=== PATIENT | male | born 1960 | race American Indian/Alaskan Native ===

== ENCOUNTER 2016-10-30 10:46 | Emergency (ER) | payer MEDICARE ==
--- NOTE | 2016-10-30 11:35 | Emergency Department Report ---
Chief Complaint: Psych Stated Complaint: MEDICAL CLEARANCE / Time Seen by Provider: 10/30/16 11:33 - HPI History of Present Illness: PT states he is here for medical clearance. PT states he has a hx of crack use. - ROS Review of Systems: - si/ hi - Exam Vital Signs: Vital Signs 10/30/16 11:03 Temperature 98.4 F Pulse Rate 57 L Respiratory 18 Rate Blood Pressure 144/99 O2 Sat by Pulse 99 Oximetry Physical Exam: PT has a flat affect PT denies HI/ SI MSE screening note: Focused history and physical exam performed. Due to findings the following was ordered: labs ED Disposition for MSE Condition: Stable
[2016-10-30 12:02] LABS: Basophils % (Auto) 1.2 % (0.0-1.8); Eosinophils % (Auto) 0.5 % (0.0-4.3); Hemoglobin 14.9 gm/dl (11.8-15.2); Mean Corpuscular HGB Conc 34 % (32-34); Mean Corpuscular Hemoglobin 32 pg (28-32); Mean Corpuscular Volume 94 fl (84-94); Platelet Count 244 K/mm3 (140-440); Red Blood Count 4.66 M/mm3 (3.65-5.03); Red Cell Distribution Width 14.9 % (13.2-15.2)
[2016-10-30 12:28] LABS: Alanine Aminotransferase 32 units/L (7-56); Albumin 4.2 g/dL (3.9-5); Albumin/Globulin Ratio 1.3 %; Alkaline Phosphatase 73 units/L (35-129); Anion Gap 18 mmol/L; BUN/Creatinine Ratio 14.54; Blood Urea Nitrogen 16 mg/dL (9-20); Calcium 9.3 mg/dL (8.4-10.2); Carbon Dioxide 22 mmol/L (22-30); Glucose 88 mg/dL (75-100); Potassium 4.2 mmol/L (3.6-5.0); Sodium 138 mmol/L (137-145); Total Protein 7.5 g/dL (6.3-8.2)
[2016-10-30 12:30] LABS: Urine Drugs of Abuse Note Disclamer
[2016-10-30 12:37] LABS: Bilirubin,Urine NEG (Negative); Blood,Urine SM (Negative); Ketones,Urine NEG (Negative); Leukocyte Esterase,Urine NEG (Negative); Mucus,Urine FEW /HPF; Nitrite,Urine NEG (Negative); Protein,Urine <15 mg/dL mg/dL (Negative); Urobilinogen,Urine < 2.0 mg/dL (<2.0)
--- NOTE | 2016-10-30 14:26 | Emergency Department Report ---
HPI - General Chief Complaint: Psych Time Seen by Provider: 10/30/16 11:33 - HPI HPI: Room 7 The patient is a 56-year-old male presenting with a chief complaint of polysubstance abuse. The patient states he went to [facility] for help with detoxing from alcohol and crack cocaine. The patient states he was sent to the ED for medical clearance. Patient denies suicidal or homicidal ideation. Patient denies auditory or visual hallucinations. Location: Mental state Duration: [see above] Quality: [see above] Severity: Moderate Modifying factors: [see above] Context: [see above] Mode of transportation: Unknown ED Past Medical Hx - Past Medical History Previous Medical History?: Yes Hx Hypertension: Yes Hx Psychiatric Treatment: Yes (ETOH abuse, Drug use) - Surgical History Past Surgical History?: No - Family History Family history: no significant - Social History Smoking Status: Current Every Day Smoker (1/2 pack per day) Substance Use Type: Alcohol (72 ounces of beer daily), Cocaine - Medications Home Medications: Home Medications Medication Instructions Recorded Confirmed Last Taken Type No Known Home Medications [No 10/30/16 10/30/16 Unknown History Reported Home Medications] ED Review of Systems ROS: Stated complaint: MEDICAL CLEARANCE / Other details as noted in HPI Comment: All other systems reviewed and negative Constitutional: denies: chills, fever Eyes: denies: eye pain, eye discharge, vision change ENT: denies: ear pain, throat pain Respiratory: denies: cough, shortness of breath, wheezing Cardiovascular: denies: chest pain, palpitations Endocrine: no symptoms reported Gastrointestinal: denies: abdominal pain, nausea, diarrhea Genitourinary: denies: urgency, dysuria Musculoskeletal: denies: back pain, joint swelling, arthralgia Skin: denies: rash, lesions Neurological: denies: headache, weakness, paresthesias Psychiatric: denies: anxiety, depression Hematological/Lymphatic: denies: easy bleeding, easy bruising Physical Exam - Physical Exam Vital Signs: Vital Signs 10/30/16 11:03 Temperature 98.4 F Pulse Rate 57 L Respiratory 18 Rate Blood Pressure 144/99 O2 Sat by Pulse 99 Oximetry Physical Exam: GENERAL: The patient is well-developed well-nourished male lying on stretcher not appearing to be in acute distress. [] HEENT: Normocephalic. Atraumatic. Extraocular motions are intact. Patient has moist mucous membranes. NECK: Supple. Trachea midline CHEST/LUNGS: Clear to auscultation. There is no respiratory distress noted. HEART/CARDIOVASCULAR: Regular. There is no tachycardia. There is no gallop rub or murmur. ABDOMEN: Abdomen is soft, nontender. Patient has normal bowel sounds. There is no abdominal distention. SKIN: There is no rash. There is no edema. There is no diaphoresis. NEURO: The patient is awake, alert, and oriented. The patient is cooperative. The patient has normal speech MUSCULOSKELETAL: There is no evidence of acute injury. ED Course Vital Signs 10/30/16 11:03 Temperature 98.4 F Pulse Rate 57 L Respiratory 18 Rate Blood Pressure 144/99 O2 Sat by Pulse 99 Oximetry ED Medical Decision Making - Lab Data Result diagrams: 10/30/16 11:51 10/30/16 11:51 Laboratory Tests 10/30/16 10/30/16 10/30/16 11:51 11:51 11:51 WBC 6.0 RBC 4.66 Hgb 14.9 Hct 44.0 MCV 94 MCH 32 MCHC 34 RDW 14.9 Plt Count 244 Lymph % (Auto) 40.2 H [place] % (Auto) 6.8 Eos % (Auto) 0.5 Baso % (Auto) 1.2 Lymph # 2.4 [place] # 0.4 Eos # 0.0 Baso # 0.1 Seg Neutrophils % 51.3 Seg Neutrophils # 3.1 Sodium 138 Potassium 4.2 Chloride 102.0 Carbon Dioxide 22 Anion Gap 18 BUN 16 Creatinine 1.1 Estimated GFR > 60 BUN/Creatinine Ratio 14.54 Glucose 88 Calcium 9.3 Total Bilirubin 0.40 AST 28 ALT 32 Alkaline Phosphatase 73 Total Protein 7.5 Albumin 4.2 Albumin/Globulin Ratio 1.3 Urine Color Urine Turbidity Urine pH Ur Specific [place] Urine Protein Urine Glucose (UA) Urine Ketones Urine Blood Urine Nitrite Urine Bilirubin Urine Urobilinogen Ur Leukocyte Esterase Urine WBC (Auto) Urine RBC (Auto) U Epithel Cells (Auto) Urine Mucus Salicylates < 0.3 L Urine Opiates Screen Urine Methadone Screen Acetaminophen Ur Barbiturates Screen Ur Phencyclidine Scrn Ur Amphetamines Screen U Benzodiazepines Scrn Urine Cocaine Screen U Marijuana (THC) Screen Drugs of Abuse Note Plasma/Serum Alcohol 10/30/16 10/30/1617 11:51 11:51 12:28 WBC RBC Hgb Hct MCV MCH MCHC RDW Plt Count Lymph % (Auto) [place] % (Auto) Eos % (Auto) Baso % (Auto) Lymph # [place] # Eos # Baso # Seg Neutrophils % Seg Neutrophils # Sodium Potassium Chloride Carbon Dioxide Anion Gap BUN Creatinine Estimated GFR BUN/Creatinine Ratio Glucose Calcium Total Bilirubin AST ALT Alkaline Phosphatase Total Protein Albumin Albumin/Globulin Ratio Urine Color Yellow Urine Turbidity Clear Urine pH 5.0 Ur Specific [place] 1.023 Urine Protein <15 mg/dl Urine Glucose (UA) Neg Urine Ketones Neg Urine Blood Sm Urine Nitrite Neg Urine Bilirubin Neg Urine Urobilinogen < 2.0 Ur Leukocyte Esterase Neg Urine WBC (Auto) 2.0 Urine RBC (Auto) 1.0 U Epithel Cells (Auto) < 1.0 Urine Mucus Few Salicylates Urine Opiates Screen Urine Methadone Screen Acetaminophen < 15.0 Ur Barbiturates Screen Ur Phencyclidine Scrn Ur Amphetamines Screen U Benzodiazepines Scrn Urine Cocaine Screen U Marijuana (THC) Screen Drugs of Abuse Note Plasma/Serum Alcohol < 0.01 10/30/16 12:28 WBC RBC Hgb Hct MCV MCH MCHC RDW Plt Count Lymph % (Auto) [place] % (Auto) Eos % (Auto) Baso % (Auto) Lymph # [place] # Eos # Baso # Seg Neutrophils % Seg Neutrophils # Sodium Potassium Chloride Carbon Dioxide Anion Gap BUN Creatinine Estimated GFR BUN/Creatinine Ratio Glucose Calcium Total Bilirubin AST ALT Alkaline Phosphatase Total Protein Albumin Albumin/Globulin Ratio Urine Color Urine Turbidity Urine pH Ur Specific [place] Urine Protein Urine Glucose (UA) Urine Ketones Urine Blood Urine Nitrite Urine Bilirubin Urine Urobilinogen Ur Leukocyte Esterase Urine WBC (Auto) Urine RBC (Auto) U Epithel Cells (Auto) Urine Mucus Salicylates Urine Opiates Screen Presumptive negative Urine Methadone Screen Presumptive negative Acetaminophen Ur Barbiturates Screen Presumptive negative Ur Phencyclidine Scrn Presumptive negative Ur Amphetamines Screen Presumptive negative U Benzodiazepines Scrn Presumptive negative Urine Cocaine Screen Presumptive positive U Marijuana (THC) Screen Presumptive negative Drugs of Abuse Note Disclamer Plasma/Serum Alcohol - Differential Diagnosis polysubstance abuse Critical care attestation.: If time is entered above; I have spent that time in minutes in the direct care of this critically ill patient, excluding procedure time. ED Disposition Clinical Impression: Cocaine abuse, Alcohol abuse Disposition: DC/TX-65 PSY HOSP/PSY UNIT Is pt being admited?: No Does the pt Need Aspirin: No Condition: Stable Referrals: PRIMARY CARE, [Primary Care Provider] - 3-5 Days Time of Disposition: 14:27 (dispo per )
[2016-10-30 18:27] VITALS: BP 135/80
== END 2016-10-30 18:26 ==
LOC: ED 10:46
DX: F14.10 Cocaine abuse, uncomplicated (principal); F10.10 Alcohol abuse, uncomplicated; I10 Essential (primary) hypertension; F17.210 Nicotine dependence, cigarettes, uncomplicated
CPT/HCPCS: 36415; 80053; 80307; 81001; 85025; 99284; G0480; 80320

== ENCOUNTER 2016-10-31 12:28 | Emergency (ER) | payer MEDICARE ==
--- NOTE | 2016-10-31 14:27 | XRay Report ---
AP CHEST: HISTORY: Hypertension AP view of the chest demonstrates a normal mediastinal and cardiac contour with clear lungs and normal bony and soft tissue structures. IMPRESSION: Unremarkable AP chest.
[2016-10-31 14:47] LABS: Creatine Kinase 166 units/L (55-170)
--- NOTE | 2016-10-31 20:46 | Emergency Department Report ---
ED General Adult HPI - General Chief complaint: Medical Clearance Stated complaint: BP LOW Time Seen by Provider: 10/31/16 20:45 Source: patient Mode of arrival: Ambulatory Limitations: No Limitations - History of Present Illness Initial comments: She is a 56-year-old male past medical history of hypertension who presents with medical clearance. They state that he is going to refer one for drug detox. And his heart rate was 56 so he was sent here to be evaluated. Patient denies having any symptoms of any chest pain, palpitations or any nausea or vomiting. Patient states that he feels fine. - Related Data Home Medications Medication Instructions Recorded Confirmed Last Taken No Known Home Medications [No 10/30/16 10/30/16 Unknown Reported Home Medications] Allergies Allergy/AdvReac Type Severity Reaction Status Date / Time No Known Allergies Allergy Unverified 10/30/16 11:03 ED Review of Systems ROS: Stated complaint: BP LOW Other details as noted in HPI Comment: All other systems reviewed and negative Constitutional: denies: chills, fever Eyes: denies: eye pain, eye discharge, vision change ENT: denies: ear pain, throat pain Respiratory: denies: cough, shortness of breath, wheezing Cardiovascular: denies: chest pain, palpitations Endocrine: no symptoms reported Gastrointestinal: denies: abdominal pain, nausea, diarrhea Genitourinary: denies: urgency, dysuria Musculoskeletal: denies: back pain, joint swelling, arthralgia Skin: denies: rash, lesions Neurological: denies: headache, weakness, paresthesias Psychiatric: denies: anxiety, depression Hematological/Lymphatic: denies: easy bleeding, easy bruising ED Past Medical Hx - Past Medical History Previous Medical History?: Yes Hx Hypertension: Yes Hx Psychiatric Treatment: Yes (ETOH abuse, Drug use) - Surgical History Past Surgical History?: No - Social History Smoking Status: Current Every Day Smoker Substance Use Type: Alcohol, Cocaine - Medications Home Medications: Home Medications Medication Instructions Recorded Confirmed Last Taken Type No Known Home Medications [No 10/30/16 10/30/16 Unknown History Reported Home Medications] ED Physical Exam - General Limitations: No Limitations - Other Other exam information: General: [No apparent distress,][alert and oriented x 3,][pleasant,][cooperative ] Eyes:[Fundus exam within normal limits,][pupils equal round and reactive to light,][extraocular movements intact] ENT: [Nares patent, mucous membranes moist, pink,][tympanic membranes pearly pink, with visible landmarks, no erythema or air-fluid level,] [oropharynx clear without exudates] Dentition: [Normal] Neck: [Supple without masses,][trachea midline,][no thyromegaly] Cardiovascular:[Normal sinus rhythm without murmurs,][carotid upstroke brisk and normal bilaterally without bruits,][no lower extremity edema][default value] Lungs: [Clear to auscultation bilaterally,][unlabored on room air] Abdomen:[Soft, nontender, nondistended,][NABS] Musculoskeletal:[Gait within normal limits,][no overt joint effusion or warmth] Skin:[No overt acute lesions] Psych:[No depression or anxiety present,][no tactile agitation] ED Course Vital Signs 10/31/16 10/31/16 10/31/16 13:48 20:45 21:30 Temperature 98.4 F 98.2 F Pulse Rate 45 L 67 Respiratory 16 16 16 Rate Blood Pressure 170/113 Blood Pressure 156/84 [Left] O2 Sat by Pulse 100 99 99 Oximetry - Reevaluation(s) Reevaluation #1: 10/31/16 21:30 Patient is not feeling lightheaded after eating. I'll send patient home back to [place] ED Medical Decision Making - Lab Data Laboratory Results - last 24 hr 10/31/16 14:13 Total Creatine Kinase 166 Troponin T < 0.010 - EKG Data 10/31/16 21:32 EKG shows marked sinus bradycardia with J-point elevation due to repolarization and signs of LVH. - Medical Decision Making Medical diagnosis: Bradycardia secondary to cocaine cessation Differential medical diagnosis: palpitation, sleeping Patient's laboratory findings are within the normal limits patient's bradycardia is not symptomatic in some while within the limits of normal. His heart rate currently now is 65 and I will send patient to referral and for medical detox. Critical care attestation.: If time is entered above; I have spent that time in minutes in the direct care of this critically ill patient, excluding procedure time. ED Disposition Clinical Impression: Medical clearance for psychiatric admission, Cocaine abuse Disposition: DC-01 TO HOME OR SELFCARE Is pt being admited?: No Does the pt Need Aspirin: No Condition: Stable Instructions: Bradycardia (ED), Polysubstance Abuse (ED) Referrals: PRIMARY CARE, [Primary Care Provider] - 3-5 Days
[2016-10-31 22:49] VITALS: BP 156/84
== END 2016-10-31 21:40 | disposition home or self-care (01) ==
LOC: ED 12:28
DX: F14.10 Cocaine abuse, uncomplicated (principal); I10 Essential (primary) hypertension
CPT/HCPCS: 36415; 71010; 82550; 84484; 93005; 93010

== ENCOUNTER 2017-05-08 08:17 | Emergency (ER) | payer MEDICARE ==
[2017-05-08 10:09] LABS: Hematocrit 45.5 % (35.5-45.6); Mean Corpuscular HGB Conc 33 % (32-34); Mean Corpuscular Hemoglobin 30 pg (28-32); Mean Corpuscular Volume 92 fl (84-94); Platelet Count 231 K/mm3 (140-440); Red Blood Count 4.93 M/mm3 (3.65-5.03); Red Cell Distribution Width 15.7 % (13.2-15.2)
[2017-05-08 10:22] LABS: BUN/Creatinine Ratio 6; Blood Urea Nitrogen 9 mg/dL (9-20); Calcium 8.6 mg/dL (8.4-10.2); Hemolysis Index 13
[2017-05-08 11:02] LABS: Band Neutrophils # (Manual) 0.6 K/mm3; Basophils % (Manual) 0 % (0.0-1.8); Eosinophils % (Manual) 0 % (0.0-4.3); RBC Morphology Normal; Total Cells Counted 100
--- NOTE | 2017-05-08 12:22 | XRay Report ---
CHEST 2 VIEWS INDICATION: Cough, dizziness. COMPARISON: 10/31/2016. FINDINGS: PA and lateral chest radiographs demonstrate normal cardiomediastinal silhouette. Clear lungs. Intact bones. CONCLUSION: No acute disease in the chest. Thank you for the opportunity to participate in this patient's care.
--- NOTE | 2017-05-08 16:22 | Emergency Department Report ---
Minor Respiratory - HPI Chief Complaint: Dizziness Stated Complaint: HYPERTENSION, DIZZINESS Time Seen by Provider: 05/08/17 16:00 Duration: 2 Days Severity: mild Minor Respiratory: Yes Rhinorrhea, Yes Able to Tolerate Fluids, Yes Cough ( patient has had a pretty productive cough for the past several days with a mild headache.), No Sore Throat, No Ear Pain, No Sick Contacts, No Hemoptysis, No Chest Pain, No Shortness of Breath, No Fever Other History: Patient is July [facility] by [facility] where he is a patient for drug abuse. Patient was sent in because he has had cough, congestion as well as diarrhea ED Review of Systems ROS: Stated complaint: HYPERTENSION, DIZZINESS Other details as noted in HPI Constitutional: denies: chills, fever Eyes: denies: eye pain, eye discharge, vision change ENT: denies: ear pain, throat pain Respiratory: denies: cough, shortness of breath, wheezing Cardiovascular: denies: chest pain, palpitations Endocrine: no symptoms reported Gastrointestinal: denies: abdominal pain, nausea, diarrhea Genitourinary: denies: urgency, dysuria Musculoskeletal: denies: back pain, joint swelling, arthralgia Skin: denies: rash, lesions Neurological: denies: headache, weakness, paresthesias Psychiatric: denies: anxiety, depression Hematological/Lymphatic: denies: easy bleeding, easy bruising ED Past Medical Hx - Past Medical History Previous Medical History?: Yes Hx Hypertension: Yes Hx Psychiatric Treatment: Yes (ETOH abuse, Drug use) - Surgical History Past Surgical History?: No - Social History Smoking Status: Current Every Day Smoker Substance Use Type: Alcohol, Prescribed - Medications Home Medications: Home Medications Medication Instructions Recorded Confirmed Last Taken Type ALBUTEROL Inhaler [ProAir HFA 2 puff IH QID PRN #1 inhalation 05/08/17 Unknown Rx Inhaler] Benzonatate [Tessalon Perle] 100 mg PO TID #12 capsule 05/08/17 Unknown Rx predniSONE [Deltasone] 20 mg PO QDAY #5 tab 05/08/17 Unknown Rx Minor Respiratory Exam - Exam General: Vital signs noted. No distress. Alert and acting appropriately. HEENT: Yes Moist Mucous Membranes, No Pharyngeal Erythema, No Pharyngeal Exudates, No Rhinorrhea, No Conjuctival Injection, No Frontal Tenderness, No Maxillary Tenderness Ear: Neither TM Bulge, Neither TM Erythema, Neither EAC Pain, Neither EAC Discharge Neck: Yes Supple, No Adenopathy Lungs: Yes Good Air Exchange, No Wheezes, No Ronchi, No Stridor, No Cough, No Labored Respirations, No Retractions, No Use of Accessory Muscles, No Other Abnormal Lung Sounds Heart: Yes Regular, No Murmur Abdomen: Yes Normal Bowel Sounds, No Tenderness, No Peritoneal Signs Skin: No Rash, No Edema Neurologic: Alert and oriented, no deficits. Musculoskeletal: Unremarkable. ED Course Vital Signs 05/08/17 09:08 Temperature 99.8 F H Pulse Rate 81 Respiratory 16 Rate Blood Pressure 151/90 O2 Sat by Pulse 95 Oximetry ED Medical Decision Making - Lab Data Result diagrams: 05/08/17 Unknown 05/08/17 09:12 - Radiology Data Radiology results: report reviewed No acute process Critical care attestation.: If time is entered above; I have spent that time in minutes in the direct care of this critically ill patient, excluding procedure time. ED Disposition Clinical Impression: Acute bronchitis Qualifiers: Bronchitis organism: unspecified organism Qualified Code(s): J20.9 - Acute bronchitis, unspecified Disposition: DC-01 TO HOME OR SELFCARE Is pt being admited?: No Does the pt Need Aspirin: No Condition: Stable Instructions: Acute Bronchitis (ED) Prescriptions: ALBUTEROL Inhaler [ProAir HFA Inhaler] 2 puff IH QID PRN #1 inhalation PRN Reason: Shortness Of Breath Benzonatate [Tessalon Perle] 100 mg PO TID #12 capsule predniSONE [Deltasone] 20 mg PO QDAY #5 tab Referrals: PRIMARY CARE, [Primary Care Provider] - 3-5 Days
[2017-05-08 17:05] VITALS: BP 148/86
== END 2017-05-08 17:05 | disposition home or self-care (01) ==
LOC: ED 08:17
DX: J20.9 Acute bronchitis, unspecified (principal); I10 Essential (primary) hypertension; F17.200 Nicotine dependence, unspecified, uncomplicated
CPT/HCPCS: 36415; 71046; 80048; 84484; 85007; 85025; 93005; 93010

== ENCOUNTER 2017-05-28 20:06 | Emergency (ER) | payer MEDICARE ==
[2017-05-28 20:14] VITALS: BP 116/80
--- NOTE | 2017-05-28 22:35 | Emergency Department Report ---
[place] [facility] Chief Complaint: Eye Problems Stated Complaint: EYE PAIN Time Seen by Provider: 05/28/17 22:30 Duration: Today Side: Bilateral Severity: moderate Symptoms: Yes Eye Itching, Yes Eye Pain (burning bilateral), No Eye Redness, No Mucous Drainage, No Purulent Drainage, No Blurred Vision, No Preceding URI, No H /O Allergic Rhinitis, No Contact Lens Use, No Trauma, No Fever Other History: This is a 56 y.o. male that presents with bilateral eye itching and burning that started today around 1800. Patient reports taking a nap at 1700 and woke up to swelling and itching to both eyes. States he is now starting to feel burning sensation. He ate around 1700 and felt fine prior to taking a nap. Denies visual changes, discharge, eating something new, cough, fever, congestion, rhinorrhea, difficulty breathing or swallowing. ED Review of Systems ROS: Stated complaint: EYE PAIN Other details as noted in HPI Constitutional: denies: chills, fever Eyes: eye pain (burning bilaterally), other (puffiness around both eyes). denies: eye discharge, vision change ENT: denies: ear pain, throat pain Respiratory: denies: cough, shortness of breath, SOB with exertion, wheezing Cardiovascular: denies: chest pain, palpitations Gastrointestinal: denies: abdominal pain, nausea, vomiting, diarrhea Neurological: denies: headache, weakness, numbness, paresthesias Psychiatric: denies: anxiety, depression ED Past Medical Hx - Past Medical History Hx Hypertension: Yes Hx Psychiatric Treatment: Yes (ETOH abuse, Drug use) - Social History Smoking Status: Current Every Day Smoker Substance Use Type: Alcohol, Prescribed - Medications Home Medications: Home Medications Medication Instructions Recorded Confirmed Last Taken Type ALBUTEROL Inhaler [ProAir HFA 2 puff IH QID PRN #1 inhalation 05/08/17 Unknown Rx Inhaler] Benzonatate [Tessalon Perle] 100 mg PO TID #12 capsule 05/08/17 Unknown Rx predniSONE [Deltasone] 20 mg PO QDAY #5 tab 05/08/17 Unknown Rx Cetirizine HCl [Zyrtec] 10 mg PO DAILY #30 tablet 05/28/17 Unknown Rx Olopatadine HCl [Pataday 0.2%] 2.5 ml OP BID #1 bottle 05/28/17 Unknown Rx [place] [facility] Exam - Exam General: Vital signs noted. No distress. Alert and acting appropriately. Eye Exam: Both EOMI, Neither Injection, Neither Chemosis (swelling of bilateral lower eyelids), Neither Abnormal Pupil, Neither Eye Foreign Body, Neither Lid Foreign Body, Neither Mucous Discharge, Neither Purulent Discharge, Neither Fluorescein Uptake, Neither Fluorescein Uptake (slit lamp), Neither Cell/Flare ( slit lamp), Neither Corneal Edema, Neither Photophobia HEENT: Yes Nasal Congestion, No Pharyngeal Erythema Lungs: Yes Clear Lung Sounds, Yes Good Air Exchange, No Wheezes, No Stridor, No Cough, No Nasal Flaring, No Retractions, No Use of Accessory Muscles ED Course Vital Signs 05/28/17 20:12 Temperature 98.5 F Pulse Rate 60 Respiratory 18 Rate Blood Pressure 116/80 O2 Sat by Pulse 98 Oximetry ED Medical Decision Making - Medical Decision Making This is a 56 y.o. A.A. male that presents with bilateral swelling of lower eyelid and burning to eyes. Patient is stable and was examined by me. Vitals normal. Physical assessment susceptible of allergic conjunctivitis bilateral. Start pataday 1 gtt bid 7 days and ceterizine 10 mg po daily, #30. Discussed plan with patient and he agreed with plan. Discharged home in stable condition. Follow up with PCP in 24-72 hours. Critical care attestation.: If time is entered above; I have spent that time in minutes in the direct care of this critically ill patient, excluding procedure time. ED Disposition Clinical Impression: Allergic conjunctivitis and rhinitis Qualifiers: Laterality: bilateral Qualified Code(s): H10.13 - Acute atopic conjunctivitis, bilateral Disposition: - TO HOME OR SELFCARE Is pt being admited?: No Does the pt Need Aspirin: No Condition: Stable Instructions: Conjunctivitis (ED), Allergic Rhinitis (ED) Additional Instructions: Use cool compress to each eye to decrease swelling. Avoid rubbing or touching eyes, because rubbing eyes can cause worsening symptoms. Take medication as prescribed. Return to ER if swelling don't improve or difficulty breathing after 2 days of medication. Follow up with primary care provider in 24-72 hours. Prescriptions: Cetirizine HCl [Zyrtec] 10 mg PO DAILY #30 tablet Olopatadine HCl [Pataday 0.2%] 2.5 ml OP BID #1 bottle Referrals: [facility] [Outside] - 3-5 Days [facility] [Outside] - 3-5 Days [facility] [Outside] - 3-5 Days Time of Disposition: 22:48 Print Language: TURKISH
== END 2017-05-28 22:57 | disposition home or self-care (01) ==
LOC: ED 20:06
DX: H10.13 Acute atopic conjunctivitis, bilateral (principal); J30.9 Allergic rhinitis, unspecified; I10 Essential (primary) hypertension; F17.200 Nicotine dependence, unspecified, uncomplicated
CPT/HCPCS: 99282

== ENCOUNTER 2019-12-27 09:12 | Emergency (ER) | payer MEDICARE ==
[2019-12-27 09:18] VITALS: BP 156/89
[2019-12-27 10:12] LABS: Bilirubin,Urine NEG (Negative); Blood,Urine SM (Negative); Color,Urine Yellow (Yellow); Mucus,Urine FEW /HPF; Protein,Urine <15 mg/dL mg/dL (Negative); Urobilinogen,Urine < 2.0 mg/dL (<2.0)
[2019-12-27 10:35] LABS: Basophils % (Auto) 0.5 % (0.0-1.8); Eosinophils # (Auto) 0.1 K/mm3 (0.0-0.4); Eosinophils % (Auto) 0.7 % (0.0-4.3); Hematocrit 44.1 % (35.5-45.6); Lymphocytes # (Auto) 1.8 K/mm3 (1.2-5.4); Lymphocytes % (Auto) 21.4 % (13.4-35.0); Mean Corpuscular HGB Conc 34 % (32-34); Mean Corpuscular Volume 94 fl (84-94); Monocytes # (Auto) 0.9 K/mm3 (0.0-0.8); Monocytes % (Auto) 11.2 % (0.0-7.3); Platelet Count 270 K/mm3 (140-440); Red Blood Count 4.71 M/mm3 (3.65-5.03); Red Cell Distribution Width 15.1 % (13.2-15.2)
[2019-12-27 10:46] LABS: Alanine Aminotransferase 21 units/L (7-56); Albumin 4.3 g/dL (3.9-5); BUN/Creatinine Ratio 17; Blood Urea Nitrogen 20 mg/dL (9-20); Calcium 9.6 mg/dL (8.4-10.2); Hemolysis Index 14
[2019-12-27] MEDS ORDERED: ONDANSETRON 4 MG/2 ML INJ IV ONE (13:39)
[2019-12-27] MEDS ORDERED: SODIUM CHLORIDE 0.9% 1000 ML 1,000 ML IV ONE (13:39)
[2019-12-27] MEDS ORDERED: MORPHINE 4 MG/1 ML INJ IV ONE (13:39)
--- NOTE | 2019-12-27 13:44 | Emergency Department Report ---
ED Abdominal Pain HPI - General Chief Complaint: Abdominal Pain Stated Complaint: abd pain Time Seen by Provider: 12/27/19 13:10 Source: patient Mode of arrival: Ambulatory Limitations: No Limitations - History of Present Illness Initial Comments: This is a 59-year-old male nontoxic, well nourished in appearance, no acute signs of distress presents to the ED with c/o of nausea and vomiting and abdominal pain 1 day. Patient describes vomiting as food content and yellow gastric acid. Patient describes abdominal pain as cramping and aching with le karen of 8/10 diffuse. Patient denies chest pain, short of breath, fever, hemoptysis, blood in stool, chills, headache, stiff neck, numbness or tingling. Patient denies any diarrhea but agrees to constipation. Denies any blood in stool. Patient denies any recent travels. Patient denies any allergies. MD Complaint: abdominal pain -: days(s) Location: diffuse Radiation: none Migration to: no migration Severity: mild Severity scale (0 -10): 8 Quality: aching Consistency: constant Improves With: nothing Worsens With: nothing Associated Symptoms: nausea, vomiting. denies: diarrhea, fever, chills, constipation, dysuria, hematemesis, hematochezia, melena, hematuria, anorexia, syncope - Related Data Previous Rx's Medication Instructions Recorded Last Taken Type Albuterol Mdi (or & Nicu Only) 2 puff IH QID PRN #1 inhalation 05/08/17 Unknown Rx [ProAir HFA Inhaler] Benzonatate [Tessalon Perle] 100 mg PO TID #12 capsule 05/08/17 Unknown Rx predniSONE [Deltasone] 20 mg PO QDAY #5 tab 05/08/17 Unknown Rx Cetirizine HCl [Zyrtec 10mg tab] 10 mg PO DAILY #30 tablet 05/28/17 Unknown Rx Olopatadine HCl [Pataday 0.2%] 2.5 ml OP BID #1 bottle 05/28/17 Unknown Rx Ciprofloxacin HCl [Ciprofloxacin 500 mg PO Q12HR #14 tab 12/27/19 Unknown Rx TAB] Ondansetron [Zofran Odt] 4 mg PO Q8HR PRN #12 tab.rapdis 12/27/19 Unknown Rx metroNIDAZOLE [Flagyl] 500 mg PO Q12HR #14 tab 12/27/19 Unknown Rx Allergies Allergy/AdvReac Type Severity Reaction Status Date / Time No Known Allergies Allergy Verified 12/27/19 09:14 ED Review of Systems ROS: Stated complaint: abd pain Other details as noted in HPI Comment: All other systems reviewed and negative Constitutional: denies: chills, fever Eyes: denies: eye pain, eye discharge, vision change ENT: denies: ear pain, throat pain Respiratory: denies: cough, shortness of breath, wheezing Cardiovascular: denies: chest pain, palpitations Endocrine: no symptoms reported Gastrointestinal: abdominal pain, nausea, vomiting, constipation. denies: diarrhea, hematemesis, melena, hematochezia Genitourinary: denies: urgency, dysuria Musculoskeletal: denies: back pain, joint swelling, arthralgia Skin: denies: rash, lesions Neurological: denies: headache, weakness, paresthesias Psychiatric: denies: anxiety, depression Hematological/Lymphatic: denies: easy bleeding, easy bruising ED Past Medical Hx - Past Medical History Hx Hypertension: Yes Hx Psychiatric Treatment: (ETOH abuse, DruG ABUSE) - Social History Smoking Status: Current Every Day Smoker Substance Use Type: None - Medications Home Medications: Home Medications Medication Instructions Recorded Confirmed Last Taken Type Albuterol Mdi (or & Nicu Only) 2 puff IH QID PRN #1 inhalation 05/08/17 Unknown Rx [ProAir HFA Inhaler] Benzonatate [Tessalon Perle] 100 mg PO TID #12 capsule 05/08/17 Unknown Rx predniSONE [Deltasone] 20 mg PO QDAY #5 tab 05/08/17 Unknown Rx Cetirizine HCl [Zyrtec 10mg tab] 10 mg PO DAILY #30 tablet 05/28/17 Unknown Rx Olopatadine HCl [Pataday 0.2%] 2.5 ml OP BID #1 bottle 05/28/17 Unknown Rx Ciprofloxacin HCl [Ciprofloxacin 500 mg PO Q12HR #14 tab 12/27/19 Unknown Rx TAB] Ondansetron [Zofran Odt] 4 mg PO Q8HR PRN #12 tab.rapdis 12/27/19 Unknown Rx metroNIDAZOLE [Flagyl] 500 mg PO Q12HR #14 tab 12/27/19 Unknown Rx ED Physical Exam - General Limitations: No Limitations General appearance: alert, in no apparent distress - Head Head exam: Present: atraumatic, normocephalic - Eye Eye exam: Present: normal appearance - Neck Neck exam: Present: normal inspection, full ROM. Absent: tenderness, meningismus, lymphadenopathy - Respiratory Respiratory exam: Present: normal lung sounds bilaterally. Absent: respiratory distress, wheezes, rales, rhonchi, stridor, chest wall tenderness, accessory muscle use, decreased breath sounds, prolonged expiratory - Cardiovascular Cardiovascular Exam: Present: regular rate, normal rhythm, normal heart sounds. Absent: bradycardia, tachycardia, irregular rhythm, systolic murmur, diastolic murmur, rubs, gallop - GI/Abdominal GI/Abdominal exam: Present: soft, distended, tenderness (diffuse), normal bowel sounds. Absent: guarding, rebound, rigid, diminished bowel sounds - Extremities Exam Extremities exam: Present: full ROM - Back Exam Back exam: Present: normal inspection, full ROM. Absent: tenderness, CVA tenderness (R), CVA tenderness (L), muscle spasm, paraspinal tenderness, vertebral tenderness, rash noted - Neurological Exam Neurological exam: Present: alert, oriented X3, normal gait - Psychiatric Psychiatric exam: Present: normal affect, normal mood - Skin Skin exam: Present: warm, dry, intact, normal color. Absent: rash ED Course Vital Signs 12/27/19 09:16 Temperature 98.8 F Pulse Rate 83 Respiratory 18 Rate Blood Pressure 156/89 O2 Sat by Pulse 98 Oximetry - Reevaluation(s) Reevaluation #1: 12/27/19 13:44 Patient is speaking in full sentences with no signs of distress noted. ED Medical Decision Making - Lab Data Result diagrams: 12/27/19 10:13 12/27/19 10:13 Lab Results 12/27/19 12/27/19 12/27/19 Range/Units 09:23 10:13 10:13 WBC 8.2 (4.5-11.0) K/mm3 RBC 4.71 (3.65-5.03) M/mm3 Hgb 15.0 (11.8-15.2) gm/dl Hct 44.1 (35.5-45.6) % MCV 94 (84-94) fl MCH 32 (28-32) pg MCHC 34 (32-34) % RDW 15.1 (13.2-15.2) % Plt Count 270 (140-440) K/mm3 Lymph % (Auto) 21.4 (13.4-35.0) % [place] % (Auto) 11.2 H (0.0-7.3) % Eos % (Auto) 0.7 (0.0-4.3) % Baso % (Auto) 0.5 (0.0-1.8) % Lymph # (Auto) 1.8 (1.2-5.4) K/mm3 [place] # (Auto) 0.9 H (0.0-0.8) K/mm3 Eos # (Auto) 0.1 (0.0-0.4) K/mm3 Baso # (Auto) 0.0 (0.0-0.1) K/mm3 Seg Neutrophils % 66.2 (40.0-70.0) % Seg Neutrophils # 5.4 (1.8-7.7) K/mm3 Sodium 135 L (137-145) mmol/L Potassium 4.3 (3.6-5.0) mmol/L Chloride 103.0 (98-107) mmol/L Carbon Dioxide 25 (22-30) mmol/L Anion Gap 11 mmol/L BUN 20 (9-20) mg/dL Creatinine 1.2 (0.8-1.3) mg/dL Estimated GFR > 60 ml/min BUN/Creatinine Ratio 17 % Glucose 82 (75-100) mg/dL Calcium 9.6 (8.4-10.2) mg/dL Total Bilirubin 0.60 (0.1-1.2) mg/dL AST 24 (5-40) units/L ALT 21 (7-56) units/L Alkaline Phosphatase 117 (35-129) units/L Total Protein 7.5 (6.3-8.2) g/dL Albumin 4.3 (3.9-5) g/dL Albumin/Globulin Ratio 1.3 % Urine Color Yellow (Yellow) Urine Turbidity Clear (Clear) Urine pH 5.0 (5.0-7.0) Ur Specific [place] 1.023 (1.003-1.030) Urine Protein <15 mg/dl (Negative) mg/dL Urine Glucose (UA) Neg (Negative) mg/dL Urine Ketones Neg (Negative) mg/dL Urine Blood Sm (Negative) Urine Nitrite Neg (Negative) Urine Bilirubin Neg (Negative) Urine Urobilinogen < 2.0 (<2.0) mg/dL Ur Leukocyte Esterase Tr (Negative) Urine WBC (Auto) 4.0 (0.0-6.0) /HPF Urine RBC (Auto) 5.0 (0.0-6.0) /HPF U Epithel Cells (Auto) < 1.0 (0-13.0) /HPF Urine Mucus Few /HPF - Radiology Data Referring Physician: DUNCAN ALATORRE Patient Name: RAMYA BENAVIDES Date of : 1960 Sex: Male Report Date: 2019-12-27 Report Status: Finalized [facility] [address] [place] [address] Cat Scan Report Signed Patient: RAMYA BENAVIDES MR#: [id number] : 1960 Acct:[id number] Age/Sex: 59 / M ADM Date: 12/27/19 Loc: ED Attending Dr: Ordering Physician: DUNCAN ALATORRE NP Date of Service: 12/27/19 Procedure(s): CT abdomen pelvis w con Accession Number(s): [id number] cc: DUNCAN ALATORRE NP CT ABDOMEN AND PELVIS WITH CONTRAST INDICATION: Abdominal pain. TECHNIQUE: Axial CT images were obtained through the abdomen and pelvis after 100 cc Omni [address] scans at this location are performed using CT dose reduction for ALARA by means of automated exposure control. COMPARISON: None available. FINDINGS: LOWER CHEST: No significant abnormality. LIVER: No significant abnormality. GALLBLADDER: No significant abnormality. BILE DUCTS: No significant abnormality. PANCREAS: No significant abnormality. SPLEEN: No significant abnormality. ADRENALS: No significant abnormality. RIGHT KIDNEY and URETER: No significant abnormality. LEFT KIDNEY and URETER: No significant abnormality. STOMACH and SMALL BOWEL: No significant abnormality. COLON: Extensive pancolonic diverticulosis with moderate bowel wall thickening of mid descending colon with small amount of pericolonic fluid in left paracolic gutter characteristic for uncomplicat ed diverticulitis. APPENDIX: No significant abnormality. PERITONEUM: No free fluid. No free air. No fluid collection. LYMPH NODES: No significant adenopathy. AORTA and ARTERIES: No significant abnormality. IVC and VEINS: No significant abnormality. URINARY BLADDER: No significant abnormality. REPRODUCTIVE ORGANS: No significant abnormality. ADDITIONAL FINDINGS: None. SKELETAL SYSTEM: Intraosseous hemangioma involving the L3 vertebral body and both transverse process disease and spinous process. Smaller intervertebral hemangiomas L2 and L5. IMPRESSION: 1. Extensive colonic diverticulosis with uncomplicated diverticulitis of mid descending colon. No abscess or free air Signer Name: Edy Cheema MD Signed: 12/27/2019 3:05 PM Workstation Name: [id number] Transcribed By: TL Dictated By: Edy Cheema MD Electronically Authenticated By: Edy Cheema MD Signed Date/Time: 12/27/19 1505 DD/ 1500 TD/TT: - Medical Decision Making This is a 59-year-old male that presents with diverticulosis with diverticulitis. Patient is stable and was examined by me. Negative signs of symptoms of appendicitis. Labs obtained. UA obtained. CT of abdomen obtained and dictated by the radiologist. Patient is notified of the report with no questions noted by the patient. Vital signs are stable prior to discharge. Patient received medical treatment in the ED which patient stated symptoms has resovled and subsided. Patient also received Flagyl and Levaquin in the ER. Was instructed note to operate any machinery due to possible drowsiness and stated someone will drive the patient home. A by mouth challenge has been ob tained and patient tolerated well with no nausea vomiting. Patient was also instructed to Follow-up with a primary care and water pumper doctor in 3-5 days or if symptoms worsen and continue return to emergency room as soon as possible. At time of discharge, the patient does not seem toxic or ill in appearance. No acute signs of distress noted. Patient agrees to discharge treatment plan of care. No further questions noted by the patient. Critical care attestation.: If time is entered above; I have spent that time in minutes in the direct care of this critically ill patient, excluding procedure time. ED Disposition Clinical Impression: Diverticulosis, Diverticulitis Disposition: - TO HOME OR SELFCARE Is pt being admited?: No Does the pt Need Aspirin: No Condition: Stable Instructions: Diverticulitis (ED), Diverticulitis Diet (ED) Additional Instructions: Follow-up with a primary care and water pumper doctor in 3-5 days or if symptoms worsen and continue return to emergency room as soon as possible. Prescriptions: Ciprofloxacin HCl [Ciprofloxacin TAB] 500 mg PO Q12HR #14 tab metroNIDAZOLE [Flagyl] 500 mg PO Q12HR #14 tab Ondansetron [Zofran Odt] 4 mg PO Q8HR PRN #12 tab.rapdis PRN Reason: Nausea Referrals: PRIMARY CAREMD [Primary Care Provider] - 3-5 Days KARMEN TANNER MD [Staff Physician] - 3-5 Days [facility] [Provider Group] - 3-5 Days Forms: Work/School Release Form(ED)
--- NOTE | 2019-12-27 15:09 | Cat Scan Report ---
CT ABDOMEN AND PELVIS WITH CONTRAST INDICATION: Abdominal pain. TECHNIQUE: Axial CT images were obtained through the abdomen and pelvis after 100 cc Omni [address] scans at this location are performed using CT dose reduction for ALARA by means of automated expos ure control. COMPARISON: None available. FINDINGS: LOWER CHEST: No significant abnormality. LIVER: No significant abnormality. GALLBLADDER: No significant abnormality. BILE DUCTS: No significant abnormality. PANCREAS: No significant abnormality. SPLEEN: No significant abnormality. ADRENALS: No significant abnormality. RIGHT KIDNEY and URETER: No significant abnormality. LEFT KIDNEY and URETER: No significant abnormality. STOMACH and SMALL BOWEL: No significant abnormality. COLON: Extensive pancolonic diverticulosis with moderate bowel wall thickening of mid descending colo n with small amount of pericolonic fluid in left paracolic gutter characteristic for uncomplicated di verticulitis. APPENDIX: No significant abnormality. PERITONEUM: No free fluid. No free air. No fluid collection. LYMPH NODES: No significant adenopathy. AORTA and ARTERIES: No significant abnormality. IVC and VEINS: No significant abnormality. URINARY BLADDER: No significant abnormality. REPRODUCTIVE ORGANS: No significant abnormality. ADDITIONAL FINDINGS: None. SKELETAL SYSTEM: Intraosseous hemangioma involving the L3 vertebral body and both transverse process disease and spinous process. Smaller intervertebral hemangiomas L2 and L5. IMPRESSION: 1. Extensive colonic diverticulosis with uncomplicated diverticulitis of mid descending colon. No abs cess or free air Signer Name: Edy Cheema MD Signed: 12/27/2019 3:05 PM Workstation Name: [id number]
[2019-12-27] MEDS ORDERED: metroNIDAZOLE/NS 500 MG/100 ML 500 MG/100 ML BAG IV ONE (15:48)
== END 2019-12-27 18:38 | disposition home or self-care (01) ==
LOC: ED 09:12
DX: K57.90 Diverticulosis of intestine, part unspecified, without perforation or abscess without bleeding (principal); K57.92 Diverticulitis of intestine, part unspecified, without perforation or abscess without bleeding; R11.2 Nausea with vomiting, unspecified; I10 Essential (primary) hypertension; F17.200 Nicotine dependence, unspecified, uncomplicated; Z79.2 Long term (current) use of antibiotics; Z79.899 Other long term (current) drug therapy
CPT/HCPCS: 36415; 74177; 80053; 81001; 85025; 96361; 96365; 96367; 96375; 99284; J1956; J2270; J2405; J7030; Q9967

== ENCOUNTER 2020-03-14 13:02 | Emergency (ER) | payer MEDICARE ==
[2020-03-14 13:10] VITALS: BP 159/86
--- NOTE | 2020-03-14 14:41 | Emergency Department Report ---
ED Eye Problem HPI - General Chief complaint: Eye Problems Stated complaint: BILATERAL SWOLLOW EYES Time Seen by Provider: 03/14/20 14:35 Source: patient Mode of arrival: Ambulatory Limitations: No Limitations - History of Present Illness Initial comments: Patient is a 59-year-old male presents emergency room with complaints of bilateral eye irritation and itching and watering eyes that began this morning when he woke up. He states he also noticed around his eyes were swollen. He denies any purulent or mucus drainage. He denies any vision changes. He denies getting anything into the eye. He denies any contact lens use. He denies any known allergies that he is aware of. He denies any new soaps, lotions, detergents, medications, anything new he can think of. He denies anyone else with the same thing. No past medical history. No allergies to medications. - Related Data Previous Rx's Medication Instructions Recorded Last Taken Type Albuterol Mdi (or & Nicu Only) 2 puff IH QID PRN #1 inhalation 05/08/17 Unknown Rx [ProAir HFA Inhaler] Benzonatate [Tessalon Perle] 100 mg PO TID #12 capsule 05/08/17 Unknown Rx predniSONE [Deltasone] 20 mg PO QDAY #5 tab 05/08/17 Unknown Rx Cetirizine HCl [Zyrtec 10mg tab] 10 mg PO DAILY #30 tablet 05/28/17 Unknown Rx Olopatadine HCl [Pataday 0.2%] 2.5 ml OP BID #1 bottle 05/28/17 Unknown Rx Ciprofloxacin HCl [Ciprofloxacin 500 mg PO Q12HR #14 tab 12/27/19 Unknown Rx TAB] Ondansetron [Zofran Odt] 4 mg PO Q8HR PRN #12 tab.rapdis 12/27/19 Unknown Rx metroNIDAZOLE [Flagyl] 500 mg PO Q12HR #14 tab 12/27/19 Unknown Rx Ketotifen Fumarate 1 drop OP Q12HR #1 bottle 03/14/20 Unknown Rx Loratadine 10 mg PO DAILY #14 tab.rapdis 03/14/20 Unknown Rx Prednisone [predniSONE 10 mg 10 mg PO .TAPER #1 tab.ds.pk 03/14/20 Unknown Rx (6-Day Pack, 21 Tabs)] Allergies Allergy/AdvReac Type Severity Reaction Status Date / Time No Known Allergies Allergy Verified 12/27/19 09:14 ED Review of Systems ROS: Stated complaint: BILATERAL SWOLLOW EYES Other details as noted in HPI Comment: All other systems reviewed and negative ED Past Medical Hx - Past Medical History Previous Medical History?: No Hx Hypertension: Yes Hx Psychiatric Treatment: (ETOH abuse, DruG ABUSE) - Surgical History Past Surgical History?: No - Social History Smoking Status: Never Smoker - Medications Home Medications: Home Medications Medication Instructions Recorded Confirmed Last Taken Type Albuterol Mdi (or & Nicu Only) 2 puff IH QID PRN #1 inhalation 05/08/17 Unknown Rx [ProAir HFA Inhaler] Benzonatate [Tessalon Perle] 100 mg PO TID #12 capsule 05/08/17 Unknown Rx predniSONE [Deltasone] 20 mg PO QDAY #5 tab 05/08/17 Unknown Rx Cetirizine HCl [Zyrtec 10mg tab] 10 mg PO DAILY #30 tablet 05/28/17 Unknown Rx Olopatadine HCl [Pataday 0.2%] 2.5 ml OP BID #1 bottle 05/28/17 Unknown Rx Ciprofloxacin HCl [Ciprofloxacin 500 mg PO Q12HR #14 tab 12/27/19 Unknown Rx TAB] Ondansetron [Zofran Odt] 4 mg PO Q8HR PRN #12 tab.rapdis 12/27/19 Unknown Rx metroNIDAZOLE [Flagyl] 500 mg PO Q12HR #14 tab 12/27/19 Unknown Rx Ketotifen Fumarate 1 drop OP Q12HR #1 bottle 03/14/20 Unknown Rx Loratadine 10 mg PO DAILY #14 tab.rapdis 03/14/20 Unknown Rx Prednisone [predniSONE 10 mg 10 mg PO .TAPER #1 tab.ds.pk 03/14/20 Unknown Rx (6-Day Pack, 21 Tabs)] ED Physical Exam - General Limitations: No Limitations General appearance: alert, in no apparent distress - Head Head exam: Present: atraumatic, normocephalic - Eye Eye exam: Present: PERRL, EOMI, other (small amount of edema to the lower eyelids, no erythema, no crusting, no drainage, no pain with EOMI). Absent: scleral icterus, conjunctival injection, nystagmus Pupils: Present: normal accommodation - ENT ENT exam: Present: mucous membranes moist - Respiratory Respiratory exam: Present: normal lung sounds bilaterally. Absent: respiratory distress, wheezes, rales, rhonchi, stridor, chest wall tenderness, accessory muscle use, decreased breath sounds, prolonged expiratory - Cardiovascular Cardiovascular Exam: Present: regular rate, normal rhythm, normal heart sounds. Absent: systolic murmur, diastolic murmur, rubs, gallop - Neurological Exam Neurological exam: Present: alert, oriented X3 - Skin Skin exam: Present: warm, dry, intact ED Course Vital Signs 03/14/20 13:06 Temperature 98.8 F Pulse Rate 54 L Respiratory 18 Rate Blood Pressure 159/86 O2 Sat by Pulse 96 Oximetry ED Medical Decision Making - Medical Decision Making Patient is a 59-year-old male presents emergency room with complaints of bilateral eye irritation and itching and watering eyes that began this morning when he woke up. He states he also noticed around his eyes were swollen. He denies any purulent or mucus drainage. He denies any vision changes. He denies getting anything into the eye. He denies any contact lens use. He denies any known allergies that he is aware of. He denies any new soaps, lotions, detergents, medications, anything new he can think of. He denies anyone else with the same thing. No past medical history. No allergies to medications. VSS. on exam: small amount of edema to the lower eyelids, no erythema, no crusting, no drainage, no pain with EOMI, PERRLA. Symptoms appear most consistent with allergies. No signs of infectious conjunctivitis at this time. Patient given prescription for Zaditor, Claritin, prednisone. Advised patient Please use medication as prescribed. Follow-up with your primary care doctor. Return to emergency room for any new or worsening symptoms. Critical care attestation.: If time is entered above; I have spent that time in minutes in the direct care of this critically ill patient, excluding procedure time. ED Disposition Clinical Impression: Allergies Qualifiers: Encounter type: initial encounter Qualified Code(s): T78.40XA - Allergy, unspecified, initial encounter Disposition: TO HOME OR SELFCARE Is pt being admited?: No Does the pt Need Aspirin: No Condition: Stable Instructions: Allergies, Adult, [id number] Additional Instructions: Please use medication as prescribed. Follow-up with your primary care doctor. Return to emergency room for any new or worsening symptoms. Prescriptions: Ketotifen Fumarate 1 drop OP Q12HR #1 bottle Loratadine 10 mg PO DAILY #14 tab.rapdis Prednisone [predniSONE 10 mg (6-Day Pack, 21 Tabs)] 10 mg PO .TAPER #1 tab.ds.pk Referrals: PRIMARY CARE, [Primary Care Provider] - 2-3 Days Time of Disposition: 14:39 Print Language: MEXICAN
== END 2020-03-14 14:44 | disposition home or self-care (01) ==
LOC: ED 13:02
DX: T78.40XA Allergy, unspecified, initial encounter (principal); I10 Essential (primary) hypertension; Z79.899 Other long term (current) drug therapy; X58.XXXA Exposure to other specified factors, initial encounter
CPT/HCPCS: 99282

== ENCOUNTER 2021-09-02 08:36 | Emergency (ER) | payer MEDICARE ==
[2021-09-02] MEDS ORDERED: traMADol 50 MG TAB PO ONE (12:43)
--- NOTE | 2021-09-02 13:39 | XRay Report ---
LEFT KNEE 3 VIEW(S) INDICATION / CLINICAL INFORMATION: knee pain fall and twist COMPARISON: None available. FINDINGS: BONES / JOINT(S): No acute fracture or subluxation. No significant arthritis. SOFT TISSUES: No significant abnormality. ADDITIONAL FINDINGS: None. IMPRESSION: 1. No acute findings. Signer Name: Rafi Perez MD Signed: 09/02/2021 1:34 PM Workstation Name: [id number]
--- NOTE | 2021-09-02 14:45 | Emergency Department Report ---
ED Lower Extremity HPI - General Chief Complaint: Extremity Injury, Lower Stated Complaint: PAIN IN LT KNEE Time Seen by Provider: 09/02/21 12:43 Source: patient Mode of arrival: Ambulatory Limitations: No Limitations - History of Present Illness Initial Comments: 61-year-old male who presents for left anterior knee pain status post fall from ladder approximately 8 rungs on yesterday. Patient states he was working outside and started raining and slipped off the ladder. There is no LOC patient was immediately ambulatory after fall states he did not seek treatment yesterday as he had no pain yesterday. He awakens today with 5/10 left medial knee pain. There is no swelling no deformity no abrasion laceration or bleeding. Patient remains amatory with slight limp. Patient denies weakness there is no paralysis. Patient denies other injury , Patient drove self to the emergency department, patient is alert oriented x3 with no acute distress at this time. - Related Data Previous Rx's Medication Instructions Recorded Last Taken Type Albuterol Mdi (or & Nicu Only) 2 puff IH QID PRN #1 inhalation 05/08/17 Unknown Rx [ProAir HFA Inhaler] Benzonatate [Tessalon Perle] 100 mg PO TID #12 capsule 05/08/17 Unknown Rx predniSONE [Deltasone] 20 mg PO QDAY #5 tab 05/08/17 Unknown Rx Cetirizine HCl [Zyrtec 10mg tab] 10 mg PO DAILY #30 tablet 05/28/17 Unknown Rx Olopatadine HCl [Pataday 0.2%] 2.5 ml OP BID #1 bottle 05/28/17 Unknown Rx Ciprofloxacin HCl [Ciprofloxacin 500 mg PO Q12HR #14 tab 12/27/19 Unknown Rx TAB] Ondansetron [Zofran Odt] 4 mg PO Q8HR PRN #12 tab.rapdis 12/27/19 Unknown Rx metroNIDAZOLE [Flagyl] 500 mg PO Q12HR #14 tab 12/27/19 Unknown Rx Ketotifen Fumarate 1 drop OP Q12HR #1 bottle 03/14/20 Unknown Rx Loratadine 10 mg PO DAILY #14 tab.rapdis 03/14/20 Unknown Rx Prednisone [predniSONE 10 mg 10 mg PO .TAPER #1 tab.ds.pk 03/14/20 Unknown Rx (6-Day Pack, 21 Tabs)] Acetaminophen [Acetaminophen TAB] 1,000 mg PO Q6HR PRN #30 tablet 09/02/21 Unknown Rx traMADoL [Ultram] 50 mg PO Q6HR PRN #12 tablet 09/02/21 Unknown Rx Allergies Allergy/AdvReac Type Severity Reaction Status Date / Time No Known Allergies Allergy Verified 09/02/21 08:46 ED Review of Systems ROS: Stated complaint: PAIN IN LT KNEE Other details as noted in HPI Constitutional: denies: chills, fever Eyes: denies: eye pain, eye discharge, vision change ENT: denies: ear pain, throat pain Respiratory: denies: cough, shortness of breath, wheezing Cardiovascular: denies: chest pain, palpitations Endocrine: no symptoms reported Gastrointestinal: denies: abdominal pain, nausea, diarrhea Genitourinary: denies: urgency, dysuria Musculoskeletal: other (Left knee pain). denies: back pain, joint swelling, arthralgia Skin: denies: rash, lesions Neurological: denies: headache, weakness, paresthesias Psychiatric: denies: anxiety, depression Hematological/Lymphatic: denies: easy bleeding, easy bruising ED Past Medical Hx - Past Medical History Hx Hypertension: Yes Hx Psychiatric Treatment: (ETOH abuse, DruG ABUSE) - Social History Smoking Status: Never Smoker - Medications Home Medications: Home Medications Medication Instructions Recorded Confirmed Last Taken Type Albuterol Mdi (or & Nicu Only) 2 puff IH QID PRN #1 inhalation 05/08/17 Unknown Rx [ProAir HFA Inhaler] Benzonatate [Tessalon Perle] 100 mg PO TID #12 capsule 05/08/17 Unknown Rx predniSONE [Deltasone] 20 mg PO QDAY #5 tab 05/08/17 Unknown Rx Cetirizine HCl [Zyrtec 10mg tab] 10 mg PO DAILY #30 tablet 05/28/17 Unknown Rx Olopatadine HCl [Pataday 0.2%] 2.5 ml OP BID #1 bottle 05/28/17 Unknown Rx Ciprofloxacin HCl [Ciprofloxacin 500 mg PO Q12HR #14 tab 12/27/19 Unknown Rx TAB] Ondansetron [Zofran Odt] 4 mg PO Q8HR PRN #12 tab.rapdis 12/27/19 Unknown Rx metroNIDAZOLE [Flagyl] 500 mg PO Q12HR #14 tab 12/27/19 Unknown Rx Ketotifen Fumarate 1 drop OP Q12HR #1 bottle 03/14/20 Unknown Rx Loratadine 10 mg PO DAILY #14 tab.rapdis 03/14/20 Unknown Rx Prednisone [predniSONE 10 mg 10 mg PO .TAPER #1 tab.ds.pk 03/14/20 Unknown Rx (6-Day Pack, 21 Tabs)] Acetaminophen [Acetaminophen TAB] 1,000 mg PO Q6HR PRN #30 tablet 09/02/21 Unknown Rx traMADoL [Ultram] 50 mg PO Q6HR PRN #12 tablet 09/02/21 Unknown Rx ED Physical Exam - General Limitations: No Limitations General appearance: alert, in no apparent distress - Head Head exam: Present: normocephalic, normal inspection - Expanded Head Exam Expanded Head exam: Absent: laceration, abrasion, contusion, hematoma - Eye Eye exam: Present: PERRL, EOMI Pupils: Present: normal accommodation - ENT ENT exam: Present: normal exam, mucous membranes moist - Neck Neck exam: Present: normal inspection, full ROM. Absent: tenderness (No posterior vertebral point tenderness range of motion intact unrestricted all quadrant there is no crepitus no ecchymosis no step-off), lymphadenopathy - Expanded Neck Exam Expanded Neck exam: Absent: midline deformity, anterior neck swelling, tracheal deviation - Respiratory Respiratory exam: Present: normal lung sounds bilaterally. Absent: respiratory distress, wheezes, rales, rhonchi, stridor, chest wall tenderness - Cardiovascular Cardiovascular Exam: Present: regular rate, normal rhythm, normal heart sounds. Absent: systolic murmur, diastolic murmur, rubs, gallop - GI/Abdominal GI/Abdominal exam: Present: soft, normal bowel sounds. Absent: distended, tenderness, guarding, rebound, rigid, bruit, hernia - Rectal Rectal exam: Present: deferred - Extremities Exam Extremities exam: Present: full ROM - Expanded Lower Extremity Exam Left Knee exam: Present: full ROM, tenderness (Mild left medial tenderness with rotation there is no crepitus no pop no click no anterior drawer), pain w/ pronation/supination, full knee extension. Absent: swelling, abrasion, laceration, ecchymosis, deformity, crepidus, dislocation, erythema, effusion Lower Leg exam: Present: full ROM. Absent: tenderness Ankle exam: Present: full ROM. Absent: tenderness Foot/Toe exam: Present: full ROM. Absent: tenderness Neuro vascular tendon exam: Absent: pulse deficit, motor deficit, sensory deficit, tendon deficit Gait: Positive: observed and normal - Back Exam Back exam: Present: normal inspection, full ROM. Absent: tenderness, paraspinal tenderness, vertebral tenderness - Neurological Exam Neurological exam: Present: alert, oriented X3, CN II-XII intact, normal gait, reflexes normal. Absent: motor sensory deficit - Expanded Neurological Exam Expanded Patient oriented to: Present: person, place, time Speech: Present: fluid speech Motor strength exam: RUE: 5, LUE: 5, RLE: 5, LLE: 5 DTR: knee (R): 1+, knee (L): 1+ Best Eye Response ([place]): (4) open spontaneously Best Motor Response ([place]): (6) obeys commands Best Verbal Response ([place]): (5) oriented [place] Total: 15 - Psychiatric Psychiatric exam: Present: normal affect, normal mood - Skin Skin exam: Present: warm, dry, intact, normal color. Absent: rash ED Course Vital Signs 09/02/21 08:44 Temperature 98.3 F Pulse Rate 61 Respiratory 20 Rate Blood Pressure 179/97 [Right] O2 Sat by Pulse 97 Oximetry ED Lower Extremity MDM - Radiology Data Radiology results: report reviewed, image reviewed LEFT KNEE 3 VIEW(S) INDICATION / CLINICAL INFORMATION: knee pain fall and twist COMPARISON: None available. FINDINGS: BONES / JOINT(S): No acute fracture or subluxation. No significant arthritis. SOFT TISSUES: No significant abnormality. ADDITIONAL FINDINGS: None. IMPRESSION: 1. No acute findings. Signer Name: Rafi Perez MD Signed: 09/02/2021 1:34 PM Workstation Name: [id number] Transcribed By: DT Dictated By: Lobo Perez MD Electronically Authenticated By: Lobo Perez MD Signed Date/Time: 09/02/211333 DD/ 33 TD/TT: - Medical Decision Making 61-year-old male who presents for left anterior knee pain status post fall from ladder approximately 8 rungs on yesterday. Patient states he was working outside and started raining and slipped off the ladder. There is no LOC patient was immediately ambulatory after fall states he did not seek treatment yesterday as he had no pain yesterday. He awakens today with 5/10 left medial knee pain. There is no swelling no deformity no abrasion laceration or bleeding. Patient remains amatory with slight limp. Patient denies weakness there is no paralysis. Patient denies other injury , Patient drove self to the emergency department, patient is alert oriented x3 with no acute distress at this time. X-rays normal no subluxation no dislocation no fracture no soft tissue abnormality. Pain is improved with medicines given in ED, plan DC to home, rice therapy,tylenol as needed. Knee exercises. Follow-up with the primary care doctor in 2 to 3 days. Return to emergency department should symptoms worsen. Patient verbalized agreement understanding with discharge plan. Patient DC'd home in stable condition at this time. Critical care attestation.: If time is entered above; I have spent that time in minutes in the direct care of this critically ill patient, excluding procedure time. ED Disposition Clinical Impression: Strain of left knee Qualifiers: Encounter type: initial encounter Qualified Code(s): S86.912A - Strain of unspecified muscle(s) and tendon(s) at lower leg level, left leg, initial encounter Disposition: HOME / SELF CARE / HOMELESS Is pt being admited?: No Does the pt Need Aspirin: No Condition: Stable Instructions: Patellar Dislocation, Elastic Bandage and RICE Therapy Additional Instructions: Take medications as prescribed, rice therapy as directed, follow-up with your doctor in 2 to 3 days. Return to emergency department should symptoms worsen Prescriptions: Acetaminophen [Acetaminophen TAB] 1,000 mg PO Q6HR PRN #30 tablet PRN Reason: Pain traMADoL [Ultram] 50 mg PO Q6HR PRN #12 tablet PRN Reason: Pain Referrals: HEIDI MARK MD [Staff Physician] - 3-5 Days Forms: Work/School Release Form(ED) Time of Disposition: 14:55
[2021-09-02 15:34] VITALS: BP 128/78
== END 2021-09-02 15:34 | disposition home or self-care (01) ==
LOC: ED 08:36
DX: S86.912A Strain of unspecified muscle(s) and tendon(s) at lower leg level, left leg, initial encounter (principal); I10 Essential (primary) hypertension; F10.10 Alcohol abuse, uncomplicated; W11.XXXA Fall on and from ladder, initial encounter; Y93.89 Activity, other specified; Y92.89 Other specified places as the place of occurrence of the external cause; Y99.8 Other external cause status
CPT/HCPCS: 99283